=== PATIENT | female | born 1990 | race American Indian/Alaskan Native ===

== ENCOUNTER 2017-08-10 11:04 | Outpatient (CLI) | payer SELFPAY ==
[2017-08-10 11:36] VITALS: BP 117/76
[2017-08-10 12:34] LABS: Bilirubin,Urine NEG (Negative); Blood,Urine NEG (Negative); Color,Urine Yellow (Yellow); Mucus,Urine FEW /HPF; Protein,Urine <15 mg/dL mg/dL (Negative)
[2017-08-10 12:40] LABS: Amphetamine Screen,Urine PRESUMPTIVE NEGATIVE; Benzodiazepines Screen,Urine PRESUMPTIVE NEGATIVE; Cocaine Screen,Urine PRESUMPTIVE NEGATIVE; Methadone Screen,Urine PRESUMPTIVE NEGATIVE; Opiate Screen,Urine PRESUMPTIVE NEGATIVE
[2017-08-10 12:52] LABS: Cannabinoid Screen,Urine PRESUMPTIVE POSITIVE
--- NOTE | 2017-08-10 14:06 | Ultrasound Report ---
BIOPHYSICAL PROFILE: INDICATION: well being. COMPARISON: None similar. TECHNIQUE: Transabdominal ultrasound with Doppler interrogation. 2 - breathing movements 2 - movements 2 - posture and tone 2 - Qualitative amniotic fluid volume 8 - TOTAL SCORE OF POSSIBLE 8 Heart Rate (bpm) 147 CONCLUSION: Findings, as above.
--- NOTE | 2017-08-10 14:11 | Ultrasound Report ---
OB ULTRASOUND GREATER THAN 14 WEEKS INDICATION: Estimated weight. COMPARISON: None similar at this institution. TECHNIQUE: Transabdominal grayscale ultrasound with Doppler interrogation. Gestation: Spence Position: Cephalic Amniotic Fluid: WNL (7-24 cm) DAYSI = 13.1 cm Placenta: Left lateral Placental Grade: II Heart Rate: 147 BPM BPD: 9.2 cm = 37 w 2 d HC: 34.7 cm = 40 w 2 d AC: 33.1 cm = 37 w 0 d FL: 7.9 cm = 40 w 4 d HC/AC Ratio: 1.05 Cephalic Index: 77.4 Estimated Weight: 3448 grams Clinical age = 40 w 4 d EDC: 08/06/2017 US Gest. Age = 38 w 6 d EDC: 08/18/2017 Note: A 6 x 4.3 x 5.7 cm anterior fibroid incidentally noted, image 15. CONCLUSION: Single, viable intrauterine gestation with ultrasound estimated age of 38 weeks and 6 days and EDC of 08/18/2017, currently in cephalic lie with an anterior fibroid and other details, as above. Thank you for the opportunity to participate in this patient's care.
== END 2017-08-10 13:07 | disposition home or self-care (01) ==
LOC: TRG 11:04
PROVIDERS: ATTEND Obstetrics & Gynecology
DX: O34.13 Maternal care for benign tumor of corpus uteri, third trimester (principal); O99.333 Smoking (tobacco) complicating pregnancy, third trimester; F17.200 Nicotine dependence, unspecified, uncomplicated; O48.0 Post-term pregnancy; Z3A.40 40 weeks gestation of pregnancy
CPT/HCPCS: 59025; 76816; 76819; 80307; 81001

== ENCOUNTER 2019-06-23 01:52 | Emergency (ER) | payer SELFPAY ==
[2019-06-23 01:57] VITALS: BP 130/41
[2019-06-23] MEDS ORDERED: ACETAMINOPHEN 325 MG TAB ONE (05:17)
[2019-06-23] MEDS ORDERED: ACETAMINOPHEN 325 MG TAB PO ONE (05:19)
--- NOTE | 2019-06-23 08:23 | Emergency Department Report ---
ED ENT HPI - General Chief complaint: Earache Stated complaint: B/L HEARING LOSS Time Seen by Provider: 06/23/19 07:13 Source: patient Mode of arrival: Ambulatory Limitations: No Limitations - History of Present Illness Initial comments: This is a 29-year-old female brought by mother nontoxic, well nourished in appearance, no acute signs of distress presents to the ED with c/o of bilateral earache and decreased hearing x2 weeks. Patient denies any ear drainage. Patient denies any trauma to the area. Patient denies any mastoid tenderness but agrees to tragus tenderness. Patient denies hearing changes. Patient denies any fever, chills, nausea, vomiting, chest pain, short of breath, headache or stiff neck. Patient denies any drug allergies or significant past medical history. MD complaint: ear pain -: week(s) (2) Location: R ear, L ear Severity: mild Severity scale (0 -10): 8 Quality: aching Consistency: constant Improves with: none Worsens with: none Associated Symptoms: other (hearing decreased). denies: fever, cough, gum swelling, toothache, pain with swallowing, sore throat, tinnitus, hearing loss, discharge from ear, rhinorrhea - Related Data Previous Rx's Medication Instructions Recorded Last Taken Type Amoxicillin/K Clav Tab [Augmentin 1 tab PO Q12HR #20 tab 06/23/19 Unknown Rx 875 mg] Ciprofloxacin HCl/Dexameth 2 drops OU TID #1 drops.susp 06/23/19 Unknown Rx [Ciprodex Otic Suspension] Allergies Allergy/AdvReac Type Severity Reaction Status Date / Time No Known Allergies Allergy Unverified 08/10/17 11:30 ED Dental HPI - General Chief complaint: Earache Stated complaint: B/L HEARING LOSS Time Seen by Provider: 06/23/19 07:13 Source: patient Mode of arrival: Ambulatory Limitations: No Limitations - Related Data Previous Rx's Medication Instructions Recorded Last Taken Type Amoxicillin/K Clav Tab [Augmentin 1 tab PO Q12HR #20 tab 06/23/19 Unknown Rx 875 mg] Ciprofloxacin HCl/Dexameth 2 drops OU TID #1 drops.susp 06/23/19 Unknown Rx [Ciprodex Otic Suspension] Allergies Allergy/AdvReac Type Severity Reaction Status Date / Time No Known Allergies Allergy Unverified 08/10/17 11:30 ED Review of Systems ROS: Stated complaint: B/L HEARING LOSS Other details as noted in HPI Constitutional: denies: chills, fever Eyes: denies: eye pain, eye discharge, vision change ENT: ear pain. denies: throat pain Respiratory: denies: cough, shortness of breath, wheezing Cardiovascular: denies: chest pain, palpitations Endocrine: no symptoms reported Gastrointestinal: denies: abdominal pain, nausea, vomiting, diarrhea Genitourinary: denies: urgency, dysuria, discharge Musculoskeletal: denies: back pain, joint swelling, arthralgia Skin: denies: rash, lesions Neurological: denies: headache, weakness, paresthesias Psychiatric: denies: anxiety, depression Hematological/Lymphatic: denies: easy bleeding, easy bruising ED Past Medical Hx - Past Medical History Previous Medical History?: No Hx Hypertension: No Hx Diabetes: No Hx Deep Vein Thrombosis: No Hx Renal Disease: No Hx Sickle Cell Disease: No Hx Seizures: No Hx Asthma: No Hx HIV: No - Surgical History Past Surgical History?: No - Social History Smoking Status: Never Smoker Substance Use Type: None - Medications Home Medications: Home Medications Medication Instructions Recorded Confirmed Last Taken Type Amoxicillin/K Clav Tab [Augmentin 1 tab PO Q12HR #20 tab 06/23/19 Unknown Rx 875 mg] Ciprofloxacin HCl/Dexameth 2 drops OU TID #1 drops.susp 06/23/19 Unknown Rx [Ciprodex Otic Suspension] ED Physical Exam - General Limitations: No Limitations General appearance: alert, in no apparent distress - Head Head exam: Present: atraumatic, normocephalic - Eye Eye exam: Present: normal appearance - Expanded ENT Exam Expanded Ear exam: Present: normal external inspection TM/Canal exam: Erythema: Right TM, Left TM, Bulging: Right TM, Left TM Mouth exam: Present: normal external inspection Teeth exam: Present: normal inspection Throat exam: Positive: normal inspection. Negative: tonsillar erythema, tonsillomegaly, tonsillar exudate, R peritonsillar mass, L peritonsillar mass - Neck Neck exam: Present: normal inspection, full ROM. Absent: tenderness, meningismus, lymphadenopathy - Extremities Exam Extremities exam: Present: full ROM - Back Exam Back exam: Present: normal inspection, full ROM. Absent: tenderness, CVA tenderness (R), CVA tenderness (L), muscle spasm, paraspinal tenderness, vertebral tenderness, rash noted - Neurological Exam Neurological exam: Present: alert, oriented X3, normal gait - Psychiatric Psychiatric exam: Present: normal affect, normal mood - Skin Skin exam: Present: warm, dry, intact, normal color. Absent: rash - Other Other exam information: Positive tragus tenderness to bilateral. ED Course Vital Signs 06/23/19 01:56 Temperature 98.5 F Pulse Rate 83 Respiratory 18 Rate Blood Pressure 130/41 O2 Sat by Pulse 97 Oximetry - Reevaluation(s) Reevaluation #1: 06/23/19 08:22 Patient is speaking in full sentences with no signs of distress noted. ED Medical Decision Making - Medical Decision Making 29-year-old female that presents with bilateral otitis media and externa. Patient is stable and was examined by me. Patient discharged with Augmentin and Ciprodex. Patient was instructed to follow-up with a ENT doctor in 3-5 days or if symptoms worsen and continue return to emergency room as soon as possible. At time of discharge, the patient does not seem toxic or ill in appearance. No acute signs of distress noted. Patient agrees to discharge treatment plan of care. No further questions noted by the patient. Critical care attestation.: If time is entered above; I have spent that time in minutes in the direct care of this critically ill patient, excluding procedure time. ED Disposition Clinical Impression: Bilateral otitis media Qualifiers: Otitis media type: unspecified Qualified Code(s): H66.93 - Otitis media, unspecified, bilateral Bilateral otitis externa Qualifiers: Otitis externa type: unspecified type Chronicity: acute Qualified Code(s): H60.503 - Unspecified acute noninfective otitis externa, bilateral Disposition: DC-01 TO HOME OR SELFCARE Is pt being admited?: No Does the pt Need Aspirin: No Condition: Stable Instructions: Otitis Media (ED), Otitis Externa (ED) Additional Instructions: Follow-up with a ENT doctor in 3-5 days or if symptoms worsen and continue return to emergency room as soon as possible. Prescriptions: Amoxicillin/K Clav Tab [Augmentin 875 mg] 1 tab PO Q12HR #20 tab Ciprofloxacin HCl/Dexameth [Ciprodex Otic Suspension] 2 drops OU TID #1 d rops.susp Referrals: PRIMARY CARE, [Primary Care Provider] - 3-5 Days CARBUCCIA,CLARISSA, MD [Staff Physician] - 3-5 Days JHONY VARGHESE MD [Staff Physician] - 3-5 Days [facility] [Outside] - 3-5 Days Forms: Work/School Release Form(ED)
[2019-06-23] MEDS ORDERED: IBUPROFEN 600 MG TAB PO ONE ×2 (08:38→08:41)
== END 2019-06-23 08:42 | disposition home or self-care (01) ==
LOC: ED 01:52
DX: H66.93 Otitis media, unspecified, bilateral (principal); H60.503 Unspecified acute noninfective otitis externa, bilateral
CPT/HCPCS: 99282